=== PATIENT | female | born 1995 | race African-American/Black ===

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

== ENCOUNTER 2017-01-18 22:21 | Emergency (ER) | payer MEDICAID, OTHER ==
[~2017-01-18] VITALS: Ht 165.1 cm; Wt 59.0 kg
[~2017-01-18 22:21] MED LIST changes: +DIFL150T PO; -METR-1 PO
[2017-01-18 22:23] VITALS: BP 132/73; PULSE 77; RESP 16; TEMP 98.1; O2SAT 97
[2017-01-19 02:45] LABS: BLOOD, URINE NEG (NEG); COMMENT (UR) CULT NOT INDICATED; CULTURE IF INDICATED CULT NOT INDICATED; GLUCOSE,URINE NEG (NEG); KETONE, URINE NEG (NEG); MUCUS URINE FEW /lpf (OCC); NITRITE,URINE NEG (NEG); PH, URINE 6.5 (5.0-8.5); SQUAMOUS EPITHELIAL CELL URINE 7 /hpf (0-5); URINE COLOR YELLOW (YELLW/STRAW)
[2017-01-19] MEDS ORDERED: DIFL150T PO (03:19)
--- NOTE | 2017-01-19 03:19 | PD ---
HPI Chief Complaint: [employer] Problem/Complaint Time Seen by Provider: 01:35 Travel History International Travel<30 days: No Contact w/Intl Traveler<30days: No Traveled to known affect area: No History of Present Illness HPI Patient is a 21-year-old female who comes in complaining of vaginal discharge for 2 weeks. She says she has had vaginal itching along with the discharge. She denies any dysuria. She denies any abdominal pain. She denies fever or chills. She says she tried using Monistat [id number] without relief. She says she is sexually active and uses condoms. PFSH Past Medical History Hx Anticoagulant Therapy: No Cardiovascular Problems: No Chemotherapy: No Cerebrovascular Accident: No Diabetes: No Diminished Hearing: No Reproductive: Yes (frequent bacterial vaginosis per pt.) Respiratory: No Immunizations Current: Yes ?: Not LMP: 01/14/17 : 0 Past Surgical History Hysterectomy: No Social History Alcohol Use: Yes (monthly) Tobacco Use: No Substance Use: No Allergies-Medications (Allergen,Severity, Reaction): Coded Allergies: No Known Allergies (Unverified , 11/28/16) Reported Meds & Prescriptions Reported Meds & Active Scripts Active Diflucan (Fluconazole) 150 Mg Tab 150 Mg PO ONCE Review of Systems General / Constitutional: No: Fever, Chills HENT: No: Headaches Cardiovascular: No: Chest Pain or Discomfort Respiratory: No: Shortness of Breath Gastrointestinal: No: Nausea, Vomiting, Abdominal Pain Genitourinary: Positive: Discharge, No: Dysuria Musculoskeletal: No: Myalgias, Weakness Skin: No Rash, No Change in Pigmentation Physical Exam Narrative GENERAL: Awake and alert, in no acute distress. SKIN: Warm and dry. HEAD: Atraumatic. Normocephalic. EYES: Pupils equal and round. No scleral icterus. ENT: Mucous membranes pink and moist. CARDIOVASCULAR: Regular rate and rhythm. No murmur appreciated. RESPIRATORY: No accessory muscle use. Clear to auscultation. Breath sounds equal bilaterally. GASTROINTESTINAL: Abdomen soft, non-tender, nondistended. : Thick, curd like white discharge. No cervical lesions. No CMT. Exam performed in the presence of nurse Moise. MUSCULOSKELETAL: No obvious deformities. No clubbing. No cyanosis. No edema. NEUROLOGICAL: Awake and alert. No obvious cranial nerve deficits. Motor grossly within normal limits. Normal speech. Data Data Last Documented VS Vital Signs Date Time Temp Pulse Resp B/P Pulse Ox O2 Delivery O2 Flow Rate FiO2 01/18/17 22:30 18 01/18/17 22:23 98.1 77 132/73 97 Room Air Orders Urinalysis - C+S If Indicated (01/19/17 01:38) Ed Urine Pregnancytest Poc (01/19/17 01:38) Gc And Chlamydia Pcr (01/19/17 01:38) Wet Prep Profile (01/19/17 01:38) Labs Laboratory Tests Test 01/19/17 02:00 Urine Color YELLOW Urine Turbidity HAZY Urine pH 6.5 Urine Specific [place] 1.027 Urine Protein NEG mg/dL Urine Glucose (UA) NEG mg/dL Urine Ketones NEG mg/dL Urine Occult Blood NEG Urine Nitrite NEG Urine Bilirubin NEG Urine Urobilinogen 2.0 MG/DL Urine Leukocyte Esterase SMALL Urine RBC 1 /hpf Urine WBC 1 /hpf Urine Squamous Epithelial 7 /hpf Cells Urine Mucus FEW /lpf Microscopic Urinalysis Comment CULT NOT INDICATED Clue Cells (Wet Prep) NONE SEEN Vaginal Trichomonas (Wet Prep) NONE SEEN Vaginal Yeast (Wet Prep) PRESENT MDM Medical Decision Making Medical Screen Exam Complete: Yes Emergency Medical Condition: Yes Medical Record Reviewed: Yes Differential Diagnosis At least infection versus bacterial vaginosis versus UTI versus GC/Chlamydia Narrative Course Patient is a 21-year-old female comes in complaining of vaginal discharge. Exam shows discharge consistent with yeast. Wet prep sent shows yeast cells. Swab sent for GC and chlamydia testing. Patient given prescription for Diflucan. Advised to follow-up with [facility]. Told she can go to the health department for her exams. Advised to return to the ED as needed for any worsening symptoms. Diagnosis Primary Impression: Vulvovaginal candidiasis Patient Instructions: General Instructions, Vulvovaginal Candidiasis (ED) Additional Instructions: Follow up with staker surveying. Return to the ED as needed for any worsening symptoms. Scripts Fluconazole (Diflucan)150 Mg [id number] Mg PO ONCE #1 TAB Ref 0 Prov:Rosalie Oscar MD 01/19/17 Disposition: 01 DISCHARGE HOME Condition: Stable Rosalie Oscar MD Jan 19, 2017 03:19
[2017-01-19 04:32] LABS: CHLAMYDIA PCR NOT DETECTED (NOT DETECT); NEISSERIA PCR NOT DETECTED (NOT DETECT)
== END 2017-01-19 03:51 | disposition home or self-care (01) ==
LOC: NEPB 22:21 → NEPE 01-19 03:51
DX: B37.3 Candidiasis of vulva and vagina (principal)
CPT/HCPCS: 81001; 84703; 87210; 87491; 87591; 99283

== ENCOUNTER 2017-08-11 08:12 | Emergency (ER) | payer MEDICAID, OTHER ==
[~2017-08-11] VITALS: Ht 165.1 cm; Wt 62.0 kg
[2017-08-11 08:14] VITALS: BP 136/73; PULSE 76; RESP 20; TEMP 98.1; O2SAT 98
--- NOTE | 2017-08-11 08:43 | PD ---
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 Reports that she is sexually active and sometimes use contraceptives. Denies history of STDs in the past. Patient denies any abdominal pain, nausea or vomiting. Patient's only complaint is vaginal discharge as well as vaginal odor. PFSH Past Medical History Hx Anticoagulant Therapy: No Cardiovascular Problems: No Chemotherapy: No Cerebrovascular Accident: No Diabetes: No Diminished Hearing: No Reproductive: Yes (frequent bacterial vaginosis per pt.) Respiratory: No Immunizations Current: Yes : 0 Past Surgical History Surgical History: No Previous Surgery Hysterectomy: No Social History Alcohol Use: Yes (monthly) Tobacco Use: No Substance Use: No Allergies-Medications (Allergen,Severity, Reaction): Coded Allergies: No Known Allergies (Unverified , 08/11/17) Reported Meds & Prescriptions Reported Meds & Active Scripts Active No Active Prescriptions or Reported Medications Review of Systems General / Constitutional: No: Fever Eyes: No: Visual changes HENT: No: Headaches Cardiovascular: No: Chest Pain or Discomfort Respiratory: No: Shortness of Breath Gastrointestinal: No: Abdominal Pain Genitourinary: Positive: Discharge, No: Dysuria, Pelvic Pain, Flank Pain, Vaginal Bleeding Musculoskeletal: No: Pain Skin: No Rash Neurologic: No: Weakness Psychiatric: No: Depression Endocrine: No: Polydipsia Hematologic/Lymphatic: No: Easy Bruising Physical Exam Narrative GENERAL: No acute distress, nontoxic SKIN: Focused skin assessment warm/dry. HEAD: Atraumatic. Normocephalic. EYES: Pupils equal and round. No scleral icterus. No injection or drainage. ENT: No nasal bleeding or discharge. Mucous membranes pink and moist. NECK: Trachea midline. No JVD. CARDIOVASCULAR: Regular rate and rhythm. No murmur appreciated. RESPIRATORY: No accessory muscle use. Clear to auscultation. Breath sounds equal bilaterally. GASTROINTESTINAL: Abdomen soft, non-tender, nondistended. Hepatic and splenic margins not palpable. : pelvic exam performed with RN at bedside, patient with thick yellowish discharge, no CMT or adnexal tenderness MUSCULOSKELETAL: No obvious deformities. No clubbing. No cyanosis. No edema. NEUROLOGICAL: Awake and alert. No obvious cranial nerve deficits. Motor grossly within normal limits. Normal speech. PSYCHIATRIC: Appropriate mood and affect; insight and judgment normal. Data Data Last Documented VS Vital Signs Date Time Temp Pulse Resp B/P (MAP) Pulse Ox O2 Delivery O2 Flow Rate FiO2 08/11/17 08:14 98.1 76 20 136/73 (94) 98 Room Air Orders Orders Gc And Chlamydia Pcr (08/11/17 08:26) Wet Prep Profile (08/11/17 08:26) Urinalysis - C+S If Indicated (08/11/17 08:26) Ed Urine Pregnancytest Poc (08/11/17 08:26) Azithromycin Powd Pack (Zithromax Powd P (08/11/17 09:30) Lidocaine 1% Inj (50 Ml) (Xylocaine 1% I (08/11/17 09:30) Ceftriaxone Inj (Rocephin Inj) (08/11/17 09:30) Labs Laboratory Tests Test 08/11/17 08:45 08/11/17 08:50 Urine Color YELLOW Urine Turbidity HAZY Urine pH 5.5 Urine Specific [place] 1.026 Urine Protein NEG mg/dL Urine Glucose (UA) NEG mg/dL Urine Ketones NEG mg/dL Urine Occult Blood NEG Urine Nitrite NEG Urine Bilirubin NEG Urine Urobilinogen LESS THAN 2.0 MG/DL Urine Leukocyte Esterase MOD Urine RBC LESS THAN 1 /hpf Urine WBC 1 /hpf Urine Squamous Epithelial Cells 4 /hpf Urine Bacteria FEW /hpf Urine Mucus FEW /lpf Microscopic Urinalysis Comment CULT NOT INDICATED Clue Cells (Wet Prep) NONE SEEN Vaginal Trichomonas (Wet Prep) NONE SEEN Vaginal Yeast (Wet Prep) PRESENT MDM Medical Decision Making Medical Screen Exam Complete: Yes Emergency Medical Condition: Yes Interpretation(s) Vital Signs Date Time Temp Pulse Resp B/P (MAP) Pulse Ox O2 Delivery O2 Flow Rate FiO2 08/11/17 08:14 98.1 76 20 136/73 (94) 98 Room Air Differential Diagnosis Differential includes cervicitis, bacterial vaginosis, UTI, Narrative Course 22-year-old female who presents to emergency room for evaluation of possible STD versus . A vaginal exam was performed, patient with thick yellowish discharge with no CMT or adnexal tenderness. GC samples sent as well as wet prep. Patient request to be treated for possible G/C. patient understands importance of following up with cultures from today, understands that if cultures are positive, all sexual partners will need to be treated. Urine test: negative for Laboratory Tests Test 08/11/17 08:45 08/11/17 08:50 Urine Color YELLOW (YELLW/STRAW) Urine Turbidity HAZY (CLEAR) Urine pH 5.5 (5.0-8.5) Urine Specific [place] 1.026 (1.002-1.035) Urine Protein NEG mg/dL (NEG-TRACE) Urine Glucose (UA) NEG mg/dL (NEG) Urine Ketones NEG mg/dL (NEG) Urine Occult Blood NEG (NEG) Urine Nitrite NEG (NEG) Urine Bilirubin NEG (NEG) Urine Urobilinogen LESS THAN 2.0 MG/DL (LESS Urine Leukocyte Esterase MOD (NEG) Urine RBC LESS THAN 1 /hpf (0-3) Urine WBC 1 /hpf (0-5) Urine Squamous Epithelial Cells 4 /hpf (0-5) Urine Bacteria FEW /hpf (NONE) Urine Mucus FEW /lpf (OCC) Microscopic Urinalysis Comment CULT NOT INDICATED Clue Cells (Wet Prep) NONE SEEN (NONE) Vaginal Trichomonas (Wet Prep) NONE SEEN (NONE) Vaginal Yeast (Wet Prep) PRESENT (NONE) patient positive for yeast infection, neg for clue cells and trich G/C pending Patient treated for G/C, understands need to refrain from sexual contact until all cultures have resulted because if cultures are positive, then all sexual parties will need to be treated. Signs and symptoms of when to return to the ER was reviewed with patient in detail Diagnosis Primary Impression: Cervicitis Additional Impression: Yeast vaginitis Patient Instructions: General Instructions Additional Instructions: Please follow up with all cultures from today Refrain from sexual activities until all cultures have been resulted If cultures are positive, then all sexual parties will need to be treated Please follow up with health clinic for full STD panel Return to ER if symptoms worsen or progress Return to ER as needed Med/Other Pt SpecificInfo: Prescription(s) given Scripts Fluconazole (Diflucan) 150 Mg Tab 150 MG PO ONCE for Infection, #1 TAB 0 Refills Prov: Jing Pastor DO 08/11/17 Disposition: 01 DISCHARGE HOME Condition: Stable Jing Pastor DO Aug 11, 2017 08:43
[2017-08-11 09:21] LABS: BACTERIA, URINE FEW /hpf; BLOOD, URINE NEG (NEG); COMMENT (UR) CULT NOT INDICATED; CULTURE IF INDICATED CULT NOT INDICATED; GLUCOSE,URINE NEG (NEG); KETONE, URINE NEG (NEG); MUCUS URINE FEW /lpf (OCC); NITRITE,URINE NEG (NEG); PH, URINE 5.5 (5.0-8.5); SQUAMOUS EPITHELIAL CELL URINE 4 /hpf (0-5); URINE COLOR YELLOW (YELLW/STRAW)
[2017-08-11] MEDS ORDERED: AZITHROMYCIN PWD FOR SUSP 1 GM PACKET PO ONE (09:30)
[2017-08-11] MEDS ORDERED: LIDOCAINE HCL 1% 50 ML VIAL IM ONE (09:30)
[2017-08-11] MEDS ORDERED: DIFL150T PO (10:01)
[2017-08-11 11:15] LABS: CHLAMYDIA PCR NOT DETECTED (NOT DETECT); NEISSERIA PCR NOT DETECTED (NOT DETECT)
== END 2017-08-11 10:26 | disposition home or self-care (01) ==
LOC: NEPE 08:12
DX: N72 Inflammatory disease of cervix uteri (principal); B37.3 Candidiasis of vulva and vagina; Z87.42 Personal history of other diseases of the female genital tract
CPT/HCPCS: 81001; 84703; 87210; 87491; 87591; 96372; 99284; J0696